=== PATIENT | female | born 1995 | race African-American/Black ===

== ENCOUNTER 2017-05-26 17:03 | Emergency (ER) | payer OTHER | END 2017-05-26 18:43 | disposition home or self-care (01) | LOC: D.ER 17:03 | DX: S16.1XXA Strain of muscle, fascia and tendon at neck level, initial encounter (principal); V43.62XA Car passenger injured in collision with other type car in traffic accident, initial encounter; Y93.89 Activity, other specified; Y92.410 Unspecified street and highway as the place of occurrence of the external cause; S43.402A Unspecified sprain of left shoulder joint, initial encounter; F17.200 Nicotine dependence, unspecified, uncomplicated ==